=== PATIENT | female | born 1975 | race African-American/Black ===

== ENCOUNTER 2019-03-20 11:06 | Outpatient (CLI) | payer MEDICAID ==
--- NOTE | 2019-03-20 11:45 | MMO ---
Bilateral MAMMO Bilat Screen DDI. CLINICAL HISTORY: Patient is 43 years old and is seen for screening. The patient has the following family history of breast cancer: mother. The patient has no personal history of cancer. VIEWS: The views performed were: bilateral craniocaudal and bilateral mediolateral oblique. This study has been interpreted with the assistance of computer-aided detection. MAMMOGRAM FINDINGS: There are scattered fibroglandular densities. There is an asymmetry seen in the MLO view only seen in the lower region of the right breast. In the left breast, there are no suspicious masses, calcifications or areas of architectural distortion. IMPRESSION: ASYMMETRY IN THE RIGHT BREAST REQUIRES ADDITIONAL EVALUATION. RECOMMEND DIAGNOSTIC MAMMOGRAM. ULTRASOUND MAY ALSO PROVE USEFUL AT RECALL. ACR BI-RADS Category 0 - Incomplete: Need additional imaging evaluation. [facility] will notify the patient of the need for additional imaging services. MAMMOGRAPHY NOTE: 1. A negative mammogram report should not delay a biopsy if a dominant of clinically suspicious mass is present. 2. Approximately 10% to 15% of breast cancers are not detected by mammography. 3. Adenosis and dense breasts may obscure an underlying neoplasm. Reported by: ADRIAN SMITH MD Electonically Signed: [id number]
== END 2019-03-20 11:07 | disposition home or self-care (01) ==
LOC: BICMAMMO 11:06
PROVIDERS: ATTEND Pediatrics
DX: Z12.31 Encounter for screening mammogram for malignant neoplasm of breast (principal); N64.89 Other specified disorders of breast; Z80.3 Family history of malignant neoplasm of breast
CPT/HCPCS: 77067

== ENCOUNTER 2019-03-21 13:59 | Outpatient (CLI) | payer MEDICAID ==
--- NOTE | 2019-03-21 14:40 | MMO ---
Right Breast MAMMO Unilat Diag DDI RT+CHARLENE. CLINICAL HISTORY: Patient is 43 years old and is seen for diagnostic exam. The patient has the following family history of breast cancer: mother. The patient has no personal history of cancer. VIEWS: The views performed were: right mediolateral oblique with tomosynthesis; right mediolateral oblique spot compression with tomosynthesis; and right mediolateral with tomosynthesis. FILMS COMPARED: The present examination has been compared to a prior imaging study performed at [facility] on 03/20/2019. This study has been interpreted with the assistance of computer-aided detection. MAMMOGRAM FINDINGS: There are scattered fibroglandular densities. The questionable asymmetric density did not persist with the additional views. There are no suspicious masses, suspicious calcifications, or new areas of architectural distortion. IMPRESSION: THERE IS NO MAMMOGRAPHIC EVIDENCE OF MALIGNANCY. A ROUTINE FOLLOW-UP MAMMOGRAM IN 1 YEAR IS RECOMMENDED. THE RESULTS OF THIS EXAM WERE SENT TO THE PATIENT. ACR BI-RADS Category 2 - Benign finding MAMMOGRAPHY NOTE: 1. A negative mammogram report should not delay a biopsy if a dominant of clinically suspicious mass is present. 2. Approximately 10% to 15% of breast cancers are not detected by mammography. 3. Adenosis and dense breasts may obscure an underlying neoplasm. Reported by: TIAGO JONAS MD Electonically Signed: [id number]
== END 2019-03-21 14:00 | disposition home or self-care (01) ==
LOC: BICMAMMO 13:59
PROVIDERS: ATTEND Pediatrics
DX: R92.8 Other abnormal and inconclusive findings on diagnostic imaging of breast (principal)
CPT/HCPCS: G0279

== ENCOUNTER 2019-07-16 09:45 | Outpatient (CLI) | payer MEDICAID ==
--- NOTE | 2019-07-16 11:10 | MMO ---
Right Breast MAMMO Unilat Diag DDI RT+CHARLENE. CLINICAL HISTORY: Patient is 43 years old and is seen for diagnostic exam and palpable abnormality in the right breast. The patient has the following family history of breast cancer: mother. The patient has no personal history of cancer. VIEWS: The views performed were: right craniocaudal; right craniocaudal with tomosynthesis; right mediolateral oblique; right mediolateral oblique with tomosynthesis; right mediolateral; right mediolateral with tomosynthesis; right exaggerated craniocaudal; and right exaggerated craniocaudal with tomosynthesis. FILMS COMPARED: The present examination has been compared to prior imaging studies performed at [facility] on 03/20/2019, 03/21/2019 and 07/16/2019. This study has been interpreted with the assistance of computer-aided detection. MAMMOGRAM FINDINGS: There are scattered fibroglandular densities. No mammo or US abnormlity at 10:00 position (site of palpable concern) There are no suspicious masses, suspicious calcifications, or new areas of architectural distortion. IMPRESSION: THERE IS NO MAMMOGRAPHIC EVIDENCE OF MALIGNANCY. A ROUTINE FOLLOW-UP MAMMOGRAM IN 1 YEAR IS RECOMMENDED. THE RESULTS OF THIS EXAM WERE SENT TO THE PATIENT. ACR BI-RADS Category 2 - Benign finding MAMMOGRAPHY NOTE: 1. A negative mammogram report should not delay a biopsy if a dominant of clinically suspicious mass is present. 2. Approximately 10% to 15% of breast cancers are not detected by mammography. 3. Adenosis and dense breasts may obscure an underlying neoplasm. Reported by: KB AGUILAR MD Electonically Signed: [id number]
--- NOTE | 2019-07-16 12:55 | ULT ---
LIMITED RIGHT BREAST ULTRASOUND: HISTORY: Right breast lump. FINDINGS: Correlation is made mammogram of same date. Sonographic evaluation of the region of palpable concern at the 10 o'clock position of the right [address] demonstrates no abnormality. IMPRESSION: BIRADS category 2 - benign findings. Return to annual mammographic screening.
== END 2019-07-16 09:46 | disposition home or self-care (01) ==
LOC: BICMAMMO 09:45
PROVIDERS: ATTEND Family Medicine
DX: N63.10 Unspecified lump in the right breast, unspecified quadrant (principal); Z80.3 Family history of malignant neoplasm of breast
CPT/HCPCS: G0279

== ENCOUNTER 2021-12-11 17:55 | Emergency (ER) | payer OTHER, MEDICAID ==
[2021-12-11] MEDS ORDERED: Ondansetron PF 4 MG/2 ML Vial ONE (18:19)
[2021-12-11] MEDS ORDERED: Morphine 4 MG/ML VIAL ONE ×2 (18:19→20:04)
[2021-12-11] MEDS ORDERED: Ketorolac Tromethamine 30 MG/ML VIAL ONE (20:04)
== END 2021-12-11 20:33 | disposition home or self-care (01) ==
LOC: ERS 17:55
DX: S16.1XXA Strain of muscle, fascia and tendon at neck level, initial encounter (principal); S86.911A Strain of unspecified muscle(s) and tendon(s) at lower leg level, right leg, initial encounter; S39.012A Strain of muscle, fascia and tendon of lower back, initial encounter; V43.62XA Car passenger injured in collision with other type car in traffic accident, initial encounter; Z79.899 Other long term (current) drug therapy; I10 Essential (primary) hypertension; D64.9 Anemia, unspecified; F17.210 Nicotine dependence, cigarettes, uncomplicated
CPT/HCPCS: 70450; 72070; 72100; 72125; 94760; 96374; 96375; 96376; J1885; J2270; J2405